=== PATIENT | female | born 1985 | race Caucasian/White ===

== ENCOUNTER 2016-11-07 23:02 | Emergency (ER) | payer OTHER ==
--- NOTE | ~2016-11-07 | EKG ---
PATIENT: HAL GUZMAN UNIT #: [id number] Ventricular Rate: 104 BPM Atrial Rate: 104 BPM P-R Interval: 128 ms QRS Duration: 80 ms Q-T Interval: 320 ms QTC Calculation(Bezet): 420 ms P [place]: 68 degrees Calculated R [place]: 49 degrees Calculated T [place]: 26 degrees Diagnosis Line: Sinus tachycardia Diagnosis Line: Otherwise normal ECG Diagnosis Line: No previous ECGs available Diagnosis Line: Confirmed by CONCEPCIÓN GALVEZ MD ([id number]) on Diagnosis Line: 11/08/2016 10:05:42 PM INTERPRETING MD: JULES
[~2016-11-07 23:02] MED LIST: AMOXICILLIN500 M1 PO; CELEXA20 MG PO; METFORMIN HCL500 M1 PO; PHENERGAN25 MG PO; VOLTAREN75 MG PO
[2016-11-08] MEDS ORDERED: APRESOLINE PO (00:05)
== END 2016-11-08 01:30 | disposition home or self-care (01) ==
LOC: CED 23:02
DX: S86.911A Strain of unspecified muscle(s) and tendon(s) at lower leg level, right leg, initial encounter (principal); R00.0 Tachycardia, unspecified; R00.2 Palpitations; X58.XXXA Exposure to other specified factors, initial encounter
CPT/HCPCS: 29540; 93005; 99283

== ENCOUNTER 2016-12-08 20:45 | Emergency (ER) | payer OTHER ==
--- NOTE | ~2016-12-08 | EKG ---
PATIENT: HAL GUZMAN UNIT #: [id number] Ventricular Rate: 73 BPM Atrial Rate: 73 BPM P-R Interval: 152 ms QRS Duration: 88 ms Q-T Interval: 386 ms QTC Calculation(Bezet): 425 ms P [place]: 83 degrees Calculated R [place]: 72 degrees Calculated T [place]: 59 degrees Diagnosis Line: Normal sinus rhythm Diagnosis Line: Cannot rule out Anterior infarct , age Diagnosis Line: undetermined Diagnosis Line: Abnormal ECG Diagnosis Line: When compared with ECG of 07-NOV-2016 23:48, Diagnosis Line: No significant change was found Diagnosis Line: Confirmed by ALEC GIBBS MD ([id number]) on Diagnosis Line: 12/10/2016 7:30:47 AM INTERPRETING MD: SAI PERAZA
[~2016-12-08 20:45] MED LIST changes: +APRESOLINE PO
[2016-12-08 23:18] LABS: POC - CKMB <1.0 ng/mL (0.0-7.9); POC - TROPONIN <0.05 ng/mL (<=0.05)
[2016-12-08 23:29] LABS: BASOPHIL# 0.1 X10e3 (0-0.3); BASOPHIL% 0.7 % (0-2.5); EOSINOPHIL# 0.6 X10e3 (0-0.7); EOSINOPHIL% 5.4 % (0.0-7.0); HEMATOCRIT 40.9 % (35.0-45.0); HEMOGLOBIN 13.8 gm/dL (12.0-16.0); LYMPHOCYTE# 2.9 X10e3 (1.0-3.5); LYMPHOCYTE% 25.3 % (17.0-45.0); MEAN CELL VOLUME 87.4 FL (83-96); MEAN CORPUSCULAR HEMOGLOBIN 29.5 PG (28-34); MEAN CORPUSCULAR HGB CONC 33.7 g/dL (30-36); MEAN PLATELET VOLUME 8.7 FL (6.5-11.5); MONOCYTE# 0.6 X10e3 (0-1.0); MONOCYTE% 5.6 % (3.0-12.0); NEUTROPHIL# 7.2 X10e3 (1.5-7.1); PLATELET COUNT 287 X10e3 (140-420); RED BLOOD COUNT 4.68 X10e (3.90-5.30); WHITE BLOOD COUNT 11.4 X10e3 (4.0-10.5)
[2016-12-08 23:31] LABS: DIFF IND NO
[2016-12-08 23:50] LABS: ALBUMIN SERUM 3.9 g/dL (3.5-5.0); BILIRUBIN, DIRECT 0.1 mg/dL (0.0-0.2); BILIRUBIN,INDIRECT 0.6 mg/dL (0.0-0.9); BILIRUBIN,TOTAL 0.7 mg/dL (0.2-2.0); BUN/CREATININE RATIO 7.5; CREATININE SERUM 0.8 mg/dL (0.6-1.4); POTASSIUM 3.8 mmol/L (3.5-5.1); PROTEIN TOTAL SERUM 7.3 g/dL (6.0-8.3)
== END 2016-12-09 01:03 | disposition home or self-care (01) ==
LOC: CED 20:45
PROVIDERS: Emergency Medicine
DX: I10 Essential (primary) hypertension (principal); G47.00 Insomnia, unspecified; F41.9 Anxiety disorder, unspecified; F32.9 Major depressive disorder, single episode, unspecified; F17.200 Nicotine dependence, unspecified, uncomplicated
CPT/HCPCS: 36415; 80048; 80076; 82553; 84484; 85025; 93005; 99284